=== PATIENT | male | born 1960 | race Asian ===

== ENCOUNTER 2021-07-21 11:57 | Emergency (ER) | payer OTHER ==
[~2021-07-21] VITALS: Ht 180.3 cm; Wt 87.5 kg
[2021-07-21 12:10] VITALS: BP 166/106; TEMP 98.2
== END 2021-07-21 13:50 | disposition home or self-care (01) ==
LOC: ED 11:57
DX: M25.552 Pain in left hip (principal); G89.29 Other chronic pain; M16.12 Unilateral primary osteoarthritis, left hip
CPT/HCPCS: 96372; 99283; J1885; J2930

== ENCOUNTER 2021-07-23 09:45 | Emergency (ER) | payer OTHER ==
[~2021-07-23] VITALS: Ht 180.3 cm; Wt 87.5 kg
[2021-07-23 09:51] VITALS: TEMP 97
[2021-07-23 11:41] VITALS: BP 142/84
== END 2021-07-23 11:41 | disposition home or self-care (01) ==
LOC: ED 09:45
DX: M54.42 Lumbago with sciatica, left side (principal); M54.41 Lumbago with sciatica, right side; G89.29 Other chronic pain; M25.552 Pain in left hip; M25.551 Pain in right hip
CPT/HCPCS: 96372; 99283; J1885; J2360